=== PATIENT | female | born 1965 | race African-American/Black ===

== ENCOUNTER 2017-08-17 00:35 | Emergency (ER) | payer BC, MEDICARE ==
[~2017-08-17] VITALS: Ht 170.2 cm; Wt 75.0 kg
[2017-08-17] MEDS ORDERED: SODIUM CHLORIDE 0.9% 1,000 ML IV ONE (05:57)
[2017-08-17] MEDS ORDERED: ONDANSETRON HCL 4MG/2ML VIAL IV ONE (06:00)
[2017-08-17] MEDS ORDERED: MORPHINE SULFATE 4 MG/ML CPJ (NOT FOR IM USE) IV ONE (06:00)
[2017-08-17] MEDS ORDERED: ONDANSETRON HCL 4MG/2ML VIAL IV NR (06:06)
[2017-08-17] MEDS ORDERED: MORPHINE SULFATE 4 MG/ML CPJ (NOT FOR IM USE) IV NR (06:06)
[2017-08-17 06:32] LABS: EOSINOPHILS % 0.7 % (0.0-5.0); HEMATOCRIT. 38.3 % (36.0-48.0); HEMOGLOBIN. 12.3 g/dL (12.0-16.0); LYMPHOCYTES % 33.7 % (20.0-50.0); MEAN CORPUSCULAR HEMOGLOBIN 23.5 pg (28.0-32.0); MEAN CORPUSCULAR VOLUME 73.4 fL (81.0-99.0); NEUTROPHILS % 59.6 % (40.0-76.0); PLATELET 298 x1000/uL (130-400); RED BLOOD CELL COUNT 5.22 mill/uL (4.2-5.4); RED CELL DISTRIBUTION WIDTH 15.2 % (11.6-14.6)
[2017-08-17 06:35] LABS: PROTHROMBIN TIME 10.4 sec (9.4-11.6)
[2017-08-17 06:39] LABS: CHLORIDE 106 mEq/L (98-107)
[2017-08-17 06:47] LABS: CARBON DIOXIDE 29 mEq/L (21-32)
[2017-08-17] MEDS ORDERED: KETOROLAC 30MG/ML VIAL IV ONE (07:30)
[2017-08-17 09:20] VITALS: BP 140/62
== END 2017-08-17 09:30 | disposition home or self-care (01) ==
LOC: ER 00:35
DX: D25.9 Leiomyoma of uterus, unspecified (principal); F17.200 Nicotine dependence, unspecified, uncomplicated; J45.909 Unspecified asthma, uncomplicated; I10 Essential (primary) hypertension; Z88.5 Allergy status to narcotic agent
CPT/HCPCS: 36415; 76705; 76856; 80053; 83690; 85025; 85610; 96361; 96374; 96375; 99285; J2270; J2405; J7030

== ENCOUNTER 2017-10-02 11:53 | Emergency (ER) | payer MEDICARE ==
[~2017-10-02] VITALS: Ht 170.2 cm; Wt 73.0 kg
[2017-10-02 12:55] LABS: HEMATOCRIT. 30.3 % (36.0-48.0); HEMOGLOBIN. 9.6 g/dL (12.0-16.0); MEAN CORPUSCULAR HEMOGLOBIN 22.4 pg (28.0-32.0); MEAN CORPUSCULAR VOLUME 70.7 fL (81.0-99.0); MEAN PLATELET VOLUME 7.5 fl (7.4-10.4); PLATELET 375 x1000/uL (130-400); RED BLOOD CELL COUNT 4.28 mill/uL (4.2-5.4); RED CELL DISTRIBUTION WIDTH 15.8 % (11.6-14.6)
[2017-10-02 13:01] LABS: CHLORIDE 106 mEq/L (98-107)
[2017-10-02 13:04] LABS: PROTHROMBIN TIME 10.2 sec (9.4-11.6)
[2017-10-02 13:10] LABS: CARBON DIOXIDE 26 mEq/L (21-32)
[2017-10-02 13:20] LABS: PLATELET ESTIMATE NORMAL
[2017-10-02] MEDS: KETOROLAC 60MG/2ML VIAL IM ONE (13:48)
[2017-10-02] MEDS: ONDANSETRON 4MG ODT PO ONE (14:13)
[2017-10-02] MEDS: SODIUM CHLORIDE 0.9% 1,000 ML IV ONE (14:13)
[2017-10-02] MEDS: ONDANSETRON HCL 4MG/2ML VIAL IV STA (14:13)
[2017-10-02] MEDS: ONDANSETRON HCL 4MG/2ML VIAL IM ONE (14:14)
[2017-10-02 14:49] LABS: HCG SCREEN NEGATIVE
[2017-10-02] MEDS: METOCLOPRAMIDE HCL 10MG/2ML VIAL IV ONE (15:08)
[2017-10-02 15:26] LABS: CLARITY URINE CLEAR (CLEAR); COLOR URINE YELLOW (YELLOW); GLUCOSE URINE NEGATIVE (NEGATIVE); KETONES URINE NEGATIVE (NEGATIVE); LEUKOCYTE ESTERASE URINE NEGATIVE (NEGATIVE); NITRITE URINE NEGATIVE (NEGATIVE); OCCULT BLOOD URINE NEGATIVE (NEGATIVE); PROTEIN URINE NEGATIVE (NEGATIVE); SPECIFIC GRAVITY URINE 1.016 (1.005-1.030); UROBILINOGEN URINE 0.2 E.U./dL (0.2-1.0)
[2017-10-02 15:37] LABS: *AMPHETAMINES SCREEN URINE NEGATIVE (NEGATIVE); *BARBITURATES SCREEN URINE NEGATIVE (NEGATIVE); *BENZODIAZEPINES SCREEN URINE NEGATIVE (NEGATIVE); *COCAINE SCREEN URINE NEGATIVE (NEGATIVE); CANNABINOID URINE SCREEN PRESUMTIVE POSITIVE (NEGATIVE); METHADONE URINE SCREEN NEGATIVE (NEGATIVE); OPIATES URINE SCREEN NEGATIVE (NEGATIVE); PHENCYCLIDINE URINE SCREEN NEGATIVE (NEGATIVE)
[2017-10-02] MEDS ORDERED: IOHEXOL-300 100 ML BOTTLE ONE (16:16)
[2017-10-02] MEDS: TRAMADOL 50MG TABLET PO ONE (17:51)
[2017-10-02 17:52] VITALS: BP 135/71
[2017-10-02] MEDS ORDERED: ONDANSETRON 4MG ODT PO ONE (18:00)
== END 2017-10-02 17:54 | disposition home or self-care (01) ==
LOC: ER 12:46
DX: D25.9 Leiomyoma of uterus, unspecified (principal); F17.200 Nicotine dependence, unspecified, uncomplicated; J45.909 Unspecified asthma, uncomplicated; I10 Essential (primary) hypertension; Z88.5 Allergy status to narcotic agent; Z88.0 Allergy status to penicillin; Z95.0 Presence of cardiac pacemaker
CPT/HCPCS: 36415; 74177; 80053; 80305; 81003; 83690; 84703; 85025; 85610; 96361; 96372; 96374; 96375; 99285; J1885; J2405; J2765; Q0162; Q9967; J7030

== ENCOUNTER 2019-06-16 20:41 | Emergency (ER) | payer MEDICARE, MEDICAID ==
[~2019-06-16] VITALS: Ht 170.2 cm; Wt 78.0 kg
[2019-06-16] MEDS ORDERED: MORPHINE SULFATE 4 MG/ML CPJ (NOT FOR IM USE) IV STA (23:01)
[2019-06-16] MEDS ORDERED: ONDANSETRON HCL 4MG/2ML INJ IV STA (23:01)
[2019-06-16 23:33] LABS: CHLORIDE 108 mEq/L (98-107); HEMATOCRIT. 38.3 % (36.0-48.0); HEMOGLOBIN. 12.2 g/dL (12.0-16.0); MEAN CORPUSCULAR HEMOGLOBIN 23.4 pg (28.0-32.0); MEAN CORPUSCULAR VOLUME 73.3 fL (81.0-99.0); MEAN PLATELET VOLUME 8.1 fl (7.4-10.4); PLATELET 264 x1000/uL (130-400); RED BLOOD CELL COUNT 5.22 mill/uL (4.2-5.4); RED CELL DISTRIBUTION WIDTH 14.7 % (11.6-14.6)
[2019-06-16 23:44] LABS: CREATINE KINASE 106 IU/L (26-192)
[2019-06-17 01:43] LABS: PLATELET ESTIMATE NORMAL
[2019-06-17] MEDS ORDERED: KETOROLAC 60MG/2ML VIAL IM ONE (03:00)
[2019-06-17] MEDS ORDERED: HYDROCODONE/ACETAMINOPHEN 5/325MG TABLET PO ONE (03:15)
[2019-06-17 03:37] VITALS: BP 139/71
== END 2019-06-17 03:47 | disposition home or self-care (01) ==
LOC: ER 20:41
DX: M79.662 Pain in left lower leg (principal); Z88.0 Allergy status to penicillin; F17.210 Nicotine dependence, cigarettes, uncomplicated; Z98.890 Other specified postprocedural states
CPT/HCPCS: 36415; 73590; 80048; 82550; 85025; 93971; 96374; 96375; 99284; J2270; J2405

== ENCOUNTER 2019-07-20 19:05 | Emergency (ER) | payer MEDICARE, MEDICAID ==
[~2019-07-20] VITALS: Ht 170.2 cm; Wt 78.0 kg
[2019-07-20] MEDS ORDERED: TETRACAINE 0.5% OPHTH DROPS 4ML LEFTEYE ONE (22:30)
[2019-07-20] MEDS ORDERED: FLUORESCEIN SODIUM 1MG/STRIP LEFTEYE ONE (22:30)
[2019-07-20 23:36] VITALS: BP 172/79
== END 2019-07-20 23:44 | disposition home or self-care (01) ==
LOC: ER 19:05
DX: H10.022 Other mucopurulent conjunctivitis, left eye (principal); J45.909 Unspecified asthma, uncomplicated; F17.210 Nicotine dependence, cigarettes, uncomplicated; F12.10 Cannabis abuse, uncomplicated; Z95.0 Presence of cardiac pacemaker; Z98.1 Arthrodesis status; Z88.5 Allergy status to narcotic agent; Z88.0 Allergy status to penicillin
CPT/HCPCS: 99283

== ENCOUNTER 2020-02-12 17:17 | Emergency (ER) | payer MEDICARE, OTHER, MEDICAID ==
[~2020-02-12] VITALS: Ht 160 cm; Wt 90.0 kg
[2020-02-12] MEDS ORDERED: MORPHINE SULFATE 10 MG/ML CPJ IM ONE (19:00)
[2020-02-12] MEDS ORDERED: KETOROLAC 60MG/2ML VIAL IM ONE (19:00)
[2020-02-12 19:18] LABS: BASOPHILS % 1.2 % (0.0-2.0); EOSINOPHILS % 0.9 % (0.0-5.0); HEMATOCRIT. 42.7 % (36.0-48.0); HEMOGLOBIN. 13.6 g/dL (12.0-16.0); LYMPHOCYTES % 44.4 % (20.0-50.0); MEAN CORPUSCULAR HEMOGLOBIN 23.3 pg (28.0-32.0); MEAN CORPUSCULAR VOLUME 73.2 fL (81.0-99.0); MEAN PLATELET VOLUME 8.3 fl (7.4-10.4); MONOCYTES % 6.4 % (2.0-8.0); NEUTROPHILS % 47.1 % (40.0-76.0); PLATELET 272 x1000/uL (130-400); RED BLOOD CELL COUNT 5.84 mill/uL (4.2-5.4); RED CELL DISTRIBUTION WIDTH 14.4 % (11.6-14.6)
[2020-02-12 19:22] LABS: CHLORIDE 104 mEq/L (98-107)
[2020-02-12 19:30] LABS: PROTHROMBIN TIME 10.5 sec (9.6-11.0)
[2020-02-12 20:45] LABS: CLARITY URINE CLOUDY (CLEAR); COLOR URINE DK YELLOW (YELLOW); KETONES URINE NEGATIVE (NEGATIVE); LEUKOCYTE ESTERASE URINE TRACE (NEGATIVE); NITRITE URINE NEGATIVE (NEGATIVE); OCCULT BLOOD URINE NEGATIVE (NEGATIVE); PH URINE 5.5 (4.5-8.0); PROTEIN URINE NEGATIVE (NEGATIVE)
[2020-02-12 22:02] VITALS: BP 135/80
== END 2020-02-12 22:04 | disposition left against medical advice (07) ==
LOC: ER 17:17
DX: D25.9 Leiomyoma of uterus, unspecified (principal); R74.8 Abnormal levels of other serum enzymes; R10.9 Unspecified abdominal pain; J45.909 Unspecified asthma, uncomplicated; Z88.0 Allergy status to penicillin; Z88.5 Allergy status to narcotic agent; Z03.818 Encounter for observation for suspected exposure to other biological agents ruled out
CPT/HCPCS: 36415; 71045; 80053; 81003; 83690; 83880; 85025; 85610; 99284; J1885; J2270